=== PATIENT | female | born 1965 ===

== ENCOUNTER 2018-03-18 08:50 | Day surgery (SDC) | payer MEDICARE ==
[2018-03-17 11:21] VITALS: BMI 33.6
[2018-03-18 09:23] VITALS: PULSE 65; RESP 16; TEMP 97.6; O2SAT 97
--- NOTE | 2018-03-18 10:16 | CP.SDSHP ---
Same Day Surgery H & P - History Proposed Procedure: EGD Pre-Op Diagnosis: MELENA - Previous Medical/Surgical History Cardiac: Hypertension Neuro: Other Misc: Other Pain: 4.Moderate Pain - Allergies Allergies: Allergies No Known Allergies Allergy (Verified 03/17/18 11:20) - Physical Exam General Appearance: N Vital Signs: Vital Signs 03/18/18 09:13 Temperature 97.6 F Pulse Rate 65 Respiratory 16 Rate Blood Pressure 103/63 O2 Sat by Pulse 97 Oximetry Mental Status: Alert & Oriented x3 Neuro: WNL Heart: Other Lungs: WNL GI: Other - {Optional Preform as Required} Breast: WNL Abdomen: Other Rectal: Other Integument: WNL : WNL Ortho: WNL ENT: WNL - Impression Pt. Evaluated Today:Candidate for Anesthesia & Procedure: Yes - Date & Time Time: 10:16 Short Stay Discharge - Short Stay Discharge Admitting Diagnosis/Reason for Visit: MELENA Disposition: HOME/ ROUTINE
[2018-03-18] MEDS ORDERED: Lactated Ringer's 1,000 ML IV ONE (10:17)
[2018-03-18] MEDS ORDERED: Lidocaine Hydrochloride 5 ML INJ ONE (10:22)
[2018-03-18] MEDS ORDERED: Propofol 10 mg/ml Inj (20 ML) ONE ×2 (10:22→10:31)
[2018-03-18] MEDS ORDERED: Belladonna-Phenobarbital PO ONE (11:00)
[2018-03-18 11:14] VITALS: BP 119/69
== END 2018-03-18 11:19 | disposition home or self-care (01) ==
LOC: C.ENDO 08:50
PROVIDERS: ATTEND Specialist
DX: K29.50 Unspecified chronic gastritis without bleeding (principal); K44.9 Diaphragmatic hernia without obstruction or gangrene; K92.1 Melena; I10 Essential (primary) hypertension; M19.90 Unspecified osteoarthritis, unspecified site; G47.33 Obstructive sleep apnea (adult) (pediatric)
CPT/HCPCS: 43239; 84703; 88305; J2704; J7120